=== PATIENT | male | born 1990 | race African-American/Black ===

== ENCOUNTER 2017-10-14 23:54 | Emergency (ER) | payer MEDICAID ==
[~2017-10-14] VITALS: Ht 182.9 cm; Wt 84.0 kg
[2017-10-15 00:28] VITALS: BP 115/65
[2017-10-15] MEDS ORDERED: ALBUTEROL (0.5%) 2.5MG/0.5ML NEB HHN ONE (01:15)
== END 2017-10-15 01:57 | disposition home or self-care (01) ==
LOC: ER 10-15 01:07
DX: J45.909 Unspecified asthma, uncomplicated (principal); F17.210 Nicotine dependence, cigarettes, uncomplicated; F12.10 Cannabis abuse, uncomplicated
CPT/HCPCS: 94640; 99283; J7611